=== PATIENT | female | born 1980 | race Caucasian/White ===

== ENCOUNTER 2022-02-09 10:05 | Emergency (ER) | payer BC, SELFPAY ==
[2022-02-09 10:13] VITALS: BP 151/91; PULSE 112; RESP 16; TEMP 36.7; O2SAT 100
--- NOTE | 2022-02-09 10:40 | ED.URI ---
HPI - URI/Sore Throat General Chief Complaint: Ear Stated Complaint: FACIAL PAIN/PRESSURE/EARS CLOGGED S/P COVID Time Seen by Provider: 02/09/22 10:19 Source: patient Mode of arrival: ambulatory Limitations: no limitations History of Present Illness HPI Narrative: Patient presents today complaining of sinus pain and congestion that has been worse over the past week. Pain increases with chewing. She is also complaining of bilateral ear clogging that is worse in the right. She was diagnosed with COVID-19 on January 24, but her symptoms started on January 22. States many of her symptoms have since resolved, but the sinus symptoms have persisted. She is been taking ibuprofen and occasional cold and flu medication with minimal relief. Related Data Allergies Allergy/AdvReac Type Severity Reaction Status Date / Time No Known Allergies Allergy Verified 12/29/21 11:32 Review of Systems Review of Systems: CONSTITUTIONAL: Denies body aches, fever, chills, or sweats. EYES: Denies visual changes, redness, or discharge. ENT: Denies rhinorrhea, sore throat, or otalgia.+ Sinus pain and pressure, ear clogging CARDIOVASCULAR: Denies chest pain, palpitations, or edema. RESPIRATORY: Denies cough or dyspnea. GASTROINTESTINAL: Denies abdominal pain, nausea, vomiting, or diarrhea. GENITOURINARY: Denies dysuria or hematuria. SKIN: Denies rash, itching, or wounds. MUSCULOSKELETAL: Denies back pain, joint pain, or myalgia. NEUROLOGIC: Denies headache, numbness, tingling, or weakness. PSYCH: Denies depression or anxiety. [facility] Past Medical History Medical History History of miscarriage x2 Surgical History Surgical History History of section x2 History of colposcopy 2007 History of dilation and curettage x2 [place] teeth removed 1999 Family History Family History Father Alcoholism Hypertension Grandparent Carcinoma of colon Hypertension Cerebrovascular accident Comments At time of signature, I have reviewed and agree with nursing past medical, surgical, social and family history unless otherwise noted. Please see nursing chart for further information. There is no relevant family history pertinent to the presenting complaint Exam Narrative: GENERAL: Well-appearing, well-nourished, and in no acute distress. HEAD: Normocephalic, atraumatic. EYES: EOMI. No redness or drainage. Conjunctivae normal. ENT: Mucous membranes pink and moist. Nares congested. No rhinorrhea. Bilateral cerumen impactions. Nontender frontal and maxillary sinuses. Throat normal. Uvula midline. NECK: Normal AROM. Supple. No lymphadenopathy. CHEST: No respiratory distress. Clear to auscultation. HEART: Regular rate and rhythm. No murmur appreciated. Normal peripheral pulses. EXTREMITIES: Normal range of motion. No edema. SKIN: Warm, dry, no rash. Capillary refill normal. Normal skin turgor. NEURO: No focal deficits. Alert and oriented x3. Gait steady. PSYCH: Normal affect. No signs of depression or anxiety. Course Course Level of Care: Express Care Visit Vital Signs Vital signs: Vital Signs Temperature 98.1 F 02/09/22 10:13 Pulse Rate 112 H 02/09/22 10:13 Respiratory Rate 16 02/09/22 10:13 Blood Pressure 151/91 H 02/09/22 10:13 Pulse Oximetry 100 02/09/22 10:13 Temperature 98.1 F 02/09/22 10:13 Pulse Rate 112 H 02/09/22 10:13 Respiratory Rate 16 02/09/22 10:13 Blood Pressure 151/91 H 02/09/22 10:13 Pulse Oximetry 100 02/09/22 10:13 Reviewed. Pt has been instructed to follow up with her PCP regarding her elevated blood pressure today. Procedures Ear Wax Removal Both Ears: Ear Wax Removal Date: 02/09/22 Ear Wax Removal Time: 10:43 Results: Re-examined: some cerumen remains TM Examination:
== END 2022-02-09 10:54 | disposition home or self-care (01) ==
PROVIDERS: Emergency Provider Nurse Practitioner
DX: J32.9 Chronic sinusitis, unspecified (principal); H61.23 Impacted cerumen, bilateral
CPT/HCPCS: 69210; 99213; G0463

== ENCOUNTER 2023-04-15 10:14 | Outpatient (CLI) | payer BC, SELFPAY ==
--- NOTE | ~2023-04-15 | MM_ITS ---
EXAMINATION: MM screening fritz BI w zain HISTORY: Screening mammogram TECHNIQUE: Craniocaudal, rotated lateral craniocaudal and mediolateral oblique 3-D tomosynthesis imag es were obtained and synthetic 2-D images were generated. CAD analysis was submitted and interpreted. COMPARISON: No prior mammogram is available for comparison at this institution. BREAST PARENCHYMAL COMPOSITION: There are scattered areas of fibroglandular density. FINDINGS: There is no evidence of suspicious mass, calcification, or architectural distortion to sugg est malignancy in either breast. There has been no suspicious interval change. IMPRESSION: 1. No mammographic evidence of malignancy. 2. Recommend routine screening mammography in one year. BI-RADS Category 1: Negative Reviewed, dictated and finalized at location A.
== END 2023-04-15 10:15 | disposition home or self-care (01) ==
LOC: ANHIMG 10:16
PROVIDERS: Visit Provider Student in an Organized Health Care Education/Training Program
DX: Z12.31 Encounter for screening mammogram for malignant neoplasm of breast (principal)
CPT/HCPCS: 77063; 77067

== ENCOUNTER 2023-09-07 12:57 | Emergency (ER) | payer BC, SELFPAY ==
--- NOTE | ~2023-09-07 | XR_ITS ---
XR knee LT 3V DATE: 09/07/2023 13:17 INDICATION: Fall. Left knee pain, bruising TECHNIQUE: 3 views COMPARISON: None FINDINGS: Mild periarticular spurring at the lateral and patellofemoral compartments. There is mild l oss of joint space height at the medial compartment No knee joint effusion is evident. No fracture or dislocation, periosteal reaction or bone destructio n. No radiopaque intra-articular loose body or chondrocalcinosis. IMPRESSION: Mild osteoarthritis; no fracture or dislocation or joint effusion Reviewed, dictated and finalized at location [facility]. [facility]
[2023-09-07 13:06] VITALS: BP 150/86; PULSE 105; RESP 16; TEMP 36.7; O2SAT 100
--- NOTE | 2023-09-07 13:21 | ED.LOWEXIN ---
HPI - Extremity Injury (Lower) General Chief Complaint: Extremity Injury, Lower Stated Complaint: Knee Pain Time Seen by Provider: 09/07/23 13:07 Source: patient and RN notes reviewed Mode of arrival: ambulatory Limitations: no limitations History of Present Illness HPI Narrative: Patient presents today complaining of pain to the left knee. She fell on it in her home onto carpeted floor after tripping 5 days ago. States pain has been slowly improving since onset. Denies numbness or tingling. Currently rates her pain 5/10. At the time of injury she did take some ibuprofen and ice, but no interventions since that time. States pain increases with movement. Related Data Home Medications Medication Instructions Recorded Confirmed No Home Medications 08/10/23 09/07/23 Allergies Allergy/AdvReac Type Severity Reaction Status Date / Time No Known Allergies Allergy Verified 09/07/23 13:04 Review of Systems Review of Systems: CONSTITUTIONAL: Denies body aches, fever, chills, or sweats. EYES: Denies visual changes, redness, or discharge. ENT: Denies rhinorrhea, congestion, sore throat, or otalgia. CARDIOVASCULAR: Denies chest pain, palpitations, or edema. RESPIRATORY: Denies cough or dyspnea. GASTROINTESTINAL: Denies abdominal pain, nausea, vomiting, or diarrhea. GENITOURINARY: Denies dysuria or hematuria. SKIN: Denies rash, itching, or wounds. MUSCULOSKELETAL: Denies back pain, or myalgia.+ left knee pain NEUROLOGIC: Denies headache, numbness, tingling, or weakness. PSYCH: Denies depression or anxiety. [facility] Past Medical History Medical History History of miscarriage x2 Surgical History Surgical History History of section x2 History of colposcopy 2008 History of dilation and curettage [place] teeth removed 1999 Family History Family History Father Alcoholism Hypertension Grandparent Carcinoma of colon Hypertension Cerebrovascular accident Social History Social History Smoking status: Never smoker Alcohol intake: current Substance use: never Substance use type: does not use Lack of Transportation: No Lack of Food: Never True Current Housing: I Have Housing Concerned About Future Housing: No Difficulty Paying Gas/Electric Bills: No Difficulty Paying for Meds: No Currently Unemployed: No Education: Master's Degree or Higher Difficulty w/ Childcare or Family Care: No Comments At time of signature, I have reviewed and agree with nursing past medical, surgical, social and family history unless otherwise noted. Please see nursing chart for further information. There is no relevant family history pertinent to the presenting complaint Exam Narrative: GENERAL: Well-appearing, well-nourished, and in no acute distress. HEAD: Normocephalic, atraumatic. EYES: EOMI. No redness or drainage. Conjunctivae normal. ENT: Mucous membranes pink and moist. NECK: Normal AROM. CHEST: No respiratory distress. EXTREMITIES:Left knee: Scattered healing ecchymosis about the anterior knee. Tenderness laterally. No obvious edema or effusion noted. Full range of motion of the knee with pain with flexion and internal rotation. Distal sensation intact. Capillary refill normal. SKIN: Warm, dry, no rash. Capillary refill normal. Normal skin turgor. NEURO: No focal deficits. Alert and oriented x3. Gait steady. PSYCH: Normal affect. No signs of depression or anxiety. Course Course Level of Care: Express Care Visit Vital Signs Vital signs: Vital Signs Temperature 98.1 F 09/07/23 13:06 Pulse Rate 105 H 09/07/23 13:06 Respiratory Rate 16 09/07/23 13:06 Blood Pressure 150/86 H 09/07/23 13:06 Pulse Oximetry
== END 2023-09-07 13:40 | disposition home or self-care (01) ==
PROVIDERS: Emergency Provider Nurse Practitioner
DX: S80.02XA Contusion of left knee, initial encounter (principal); W01.0XXA Fall on same level from slipping, tripping and stumbling without subsequent striking against object, initial encounter
CPT/HCPCS: 73562; 99213; G0463